=== PATIENT | female | born 1970 | race Two or more races ===

== ENCOUNTER 2020-08-28 14:45 | Emergency (ER) | payer BC, OTHER ==
[~2020-08-28] VITALS: Ht 149.9 cm; Wt 55.9 kg
[2020-08-28 15:02] VITALS: BP 141/66
[2020-08-28 15:28] LABS: BILIRUBIN,URINE NEGATIVE (NEG); CLARITY,URINE CLEAR; COLOR,URINE YELLOW; NITRITE,URINE NEGATIVE (NEG); PH,URINE 6.5 (<5.0-8.0); PROTEIN,URINE NEGATIVE (NEG-TRACE); UROBILINOGEN,URINE 0.2 mg/dL (0.2 mg/dL)
[2020-08-28 15:36] LABS: BACTERIA,URINE 0 /HPF (0-FEW)
[2020-08-28 15:48] LABS: BARBITURATES NEG (NEG); BENZODIAZEPINES NEG (NEG); CANNABINOIDS NEG (NEG); COCAINE NEG (NEG); METHADONE NEG (NEG); OPIATES NEG (NEG); PHENCYCLIDINE NEG (NEG)
[2020-08-28 15:49] LABS: AMPHETAMINE/METHAMPHETAMINE NEG (NEG)
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
[2020-08-28] MEDS ORDERED: METH4TAB2 PO (16:42)
[2020-08-28] MEDS ORDERED: HYDR-2761 PO (16:42)
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
== END 2020-08-28 16:50 | disposition home or self-care (01) ==
LOC: ER 14:45
DX: S20.212A Contusion of left front wall of thorax, initial encounter (principal); S00.03XA Contusion of scalp, initial encounter; R07.89 Other chest pain; R10.9 Unspecified abdominal pain; V49.49XA Driver injured in collision with other motor vehicles in traffic accident, initial encounter; Y92.488 Other paved roadways as the place of occurrence of the external cause; Y93.89 Activity, other specified; Y99.8 Other external cause status
CPT/HCPCS: 70486; 71250; 74176; 80307; 81001; 99285-25